=== PATIENT | male | born 1985 | race Caucasian/White ===

== ENCOUNTER 2017-04-21 12:31 | Emergency (ER) | payer OTHER ==
[~2017-04-21] VITALS: Ht 172.7 cm; Wt 81.6 kg
[2017-04-21 12:43] VITALS: BP 142/78
[2017-04-21] MEDS ORDERED: HYDR-971 PO (13:20)
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
[2017-04-21] MEDS ORDERED: HYDROcodone/APAP 10/325 1 TAB TABLET PO ONE (13:30)
== END 2017-04-21 13:45 | disposition home or self-care (01) ==
LOC: ER 12:31
DX: S80.02XA Contusion of left knee, initial encounter (principal); V09.9XXA Pedestrian injured in unspecified transport accident, initial encounter; Y93.89 Activity, other specified; Y99.8 Other external cause status; Y92.89 Other specified places as the place of occurrence of the external cause
CPT/HCPCS: 73562; 99284